=== PATIENT | female | born 1945 | race African-American/Black ===

== ENCOUNTER 2016-06-22 18:44 | Emergency (ER) | payer BC ==
[~2016-06-22 18:44] MED LIST: ACET500CAP PO; APRES25 PO; ASAB PO; C1 PO; C2 PO; CAT2 PO; CEFT5 PO; CORDARONE PO; COREG25 PO; COUMADIN4 MG PO; COZAAR100 MG PO; DIGITEK0.125 MG PO; EZFE 200200 MG PO; FOSRENOL1000 MG PO; HALF81 PO; IRON INFUSION; K500 PO; L40 PO; LAN125 PO; LOP50 PO; LUMIGAN2.5 ML OPH; MICARDIS80 PO; MYCOSCROI TOP; NIFEDIAC CC90 MG PO; NORCO1 TA1 PO; NYSTATPOW TOP; NYSTOP100000 MG TOP; PACERONE200 MG PO; VITAMIN D OTC PO; VITAMIN D1000 UNI1 PO; XARELTO15 MG PO; Z100 PO; ZAROX2.5B PO
[2016-06-22 19:15] LABS: BASOPHILS 0.2 %; BASOPHILS ABSOLUTE 0.02 10/3/uL (0.0-0.16); EOSINOPHILS 3.6 %; EOSINOPHILS ABSOLUTE 0.32 10/3/uL (0.0-0.53); ER CBC TAT 0 Hrs 08 Mins; HEMATOCRIT 34.7 % (36.0-48.0); HEMOGLOBIN 11.1 g/dL (12.0-16.0); IMMATURE GRANULOCYTES 0.3 %; IMMATURE GRANULOCYTES ABSOLUTE 0.03 10/3/uL (0.0-0.11); LYMPHOCYTES 23.6 %; LYMPHOCYTES ABSOLUTE 2.07 10/3/uL (0.67-4.30); MEAN CORPUSCULAR HEMOGLOB 32.6 pg (26.0-34.0); MEAN PLATELET VOLUME 9.2 fL (9.2-13.0); MONOCYTES 12.2 %; MONOCYTES ABSOLUTE 1.07 10/3/uL (0.21-1.20); NEUTROPHILS 60.1 %; NEUTROPHILS ABSOLUTE 5.27 10/3/uL (2.02-8.40); PLATELET COUNT 177 10/3/uL (150-400); RBC DISTRIBUTION WIDTH 14.8 % (12.0-16.0); WHITE BLOOD CELLS 8.8 10/3/uL (4.5-10.5)
[2016-06-22 19:17] LABS: MANUAL DIFF NO %; MEAN CORPUSCULAR VOLUME 102.1 fL (80-100)
[2016-06-22 19:19] LABS: INTERNATIONAL NORMAL RATI 2.7 UNITS (-); PARTIAL THROMBO TIME 34.4 SEC (22.5-37.2)
[2016-06-22 19:21] LABS: PROTIME (NOT ORD) 28.2 SEC (12.0-14.5)
[2016-06-22 19:22] LABS: CALCIUM, SERUM 9.5 MG/DL (8.5-10.4); CHLORIDE, SERUM 101 MMOL/L (96-112); CO2 (CARBON DIOXIDE) 27 MMOL/L (24-34); GFR AFRICAN AMERICAN 4 ML/MIN (>=60); GFR NON AFRICAN AMERICAN 4 ML/MIN (>=60); GLUCOSE, SERUM 110 MG/DL (60-99); POTASSIUM, SERUM 4.3 MMOL/L (3.5-5.3); SODIUM, SERUM 141 MMOL/L (135-148)
[2016-06-22 19:23] LABS: BUN (BLOOD UREA NITROGEN) 49 MG/DL (6-23); CREATININE 9.81 MG/DL (0.55-1.02)
== END 2016-06-22 20:08 | disposition home or self-care (01) ==
LOC: ER 18:44
PROVIDERS: Hospitalist
DX: L29.9 Pruritus, unspecified (principal); N18.6 End stage renal disease; Z79.01 Long term (current) use of anticoagulants
CPT/HCPCS: 80048; 85025; 85610; 85730; 96372; 99283; J3410